=== PATIENT | female | born 1970 | race Caucasian/White ===

== ENCOUNTER 2021-07-25 15:40 | Observation (INO) | payer OTHER, BC ==
[~2021-07-25] VITALS: Ht 160 cm; Wt 75.7 kg
[2021-07-25 16:25] VITALS: BP 161/98
[2021-07-25 18:20] LABS: HEMATOCRIT 39.8 % (37.0-47.0); HEMOGLOBIN 13.5 gm/dL (12.0-15.0); MCH 30.4 pg (26.0-34.0); MCV 89.4 fL (80.0-100.0); RBC 4.45 mil/uL (4.20-5.00); RDW 12.7 % (10.5-14.5); WBC 9.3 thou/uL (4.0-11.0)
[2021-07-25 18:34] LABS: CALCIUM 9.1 mg/dL (8.5-10.1); CREATININE 0.8 mg/dL (0.6-1.0); POTASSIUM 4.2 mmol/L (3.5-5.1)
[2021-07-25 18:37] LABS: APTT 26.3 Seconds (24.5-32.8); INR 1.03; PROTIME 11.2 Seconds (10.5-12.1)
[2021-07-25 18:40] LABS: TOTAL BILIRUBIN 0.3 mg/dL (0.2-1.0); TOTAL PROTEIN 8.1 g/dL (6.4-8.2)
[2021-07-25 20:28] LABS: ALBUMIN 4.4 g/dL (3.4-5.0)
[2021-07-25 23:33] VITALS: BP 143/88
[2021-07-26] VITALS: BP 115/74
[2021-07-26 00:34] VITALS: BP 144/92
--- NOTE | 2021-07-26 03:00 | NUR ---
ADMISSION COMPLETED. SOON PATIENT ARRIVED TO THE UNIT, SHE WANTED THE C-COLLAR OFF. IT WAS CAUSING HER ANXIETY. ORDERS RECIVED FROM DR BRADY TO KEEP C-COLLAR OFF, PT ALS0 GIVEN NORCO FOR PAIN. PT C/O SORENESS TO R KNEE WITH SOME MILD BRUISING NOTED. SHE REPORTS THAT NUMBNESS TO LUE IS RESOLVED. DENIES ANY DISCOMFORT TO NECK OR LOWER BACK. PT ALSO PUT ON REG DIET. SHE DENIES ANY NAUSEA OR VOMITING. VSS. PT FELT VERY EXHAUSTED AND JUST WANTED TO SLEEP. SHE EXPRESSED NEED TO GET A SLEEP AIDE BUT WAS INFORMED IT WAS ALITTLE LATE.CALL LIGHT WITHIN REACH.
[2021-07-26 08:03] VITALS: BP 131/90
--- NOTE | 2021-07-26 16:46 | NUR ---
PT ALERT AND ORIENTED TIMES FOUR. VSS. PT C/O PAIN PRN PAIN MEDICATIONS GIVEN WITH FELIX MOCTEZUMA. PT TOELARETS MEDS AND MEALS. PT UP WITH STANDBY ASSIST. PT AT MOM AT BEDSIDE TODAY. PLAN FOR DISCHARGE TODAY. WILL CONTINUE TO MONITOR.
[2021-07-26] MEDS ORDERED: NORCO5 PO (16:50)
[2021-07-26 16:51] VITALS: BP 131/90
== END 2021-07-26 18:29 | disposition home or self-care (01) ==
LOC: ER 15:40 → EROBS 19:46 → 4S 19:46
PROVIDERS: Nurse Practitioner Family; ADMIT Surgery; ATTEND Surgery
DX: S09.8XXA Other specified injuries of head, initial encounter (principal); M25.561 Pain in right knee; Z20.822 Contact with and (suspected) exposure to COVID-19; V49.49XA Driver injured in collision with other motor vehicles in traffic accident, initial encounter; Y93.89 Activity, other specified; Y92.89 Other specified places as the place of occurrence of the external cause; Z79.899 Other long term (current) drug therapy